=== PATIENT | female | born 1975 | race Caucasian/White ===

== ENCOUNTER 2019-02-27 18:43 | Outpatient (REF) | payer MEDICAID, SELFPAY ==
--- NOTE | 2019-02-27 16:45 | PAPFT_PTH ---
PATIENT: Taya Harvey LOC: [facility] U#:[id number] AGE/SX: 44/F ROOM: RE02/27/[address]: Maggie Son : 1975 BED: DIS: 02/27/2019 SPEC #: [id number] RECD: 02/28/19 12:47 STATUS: SADE REQ #: [id number] TEJAL: 02/27/19 16:[address]: Maggie Son DEPT: [facility] Cytology RECD BY: Kamryn Monae ENTERED: 02/28/19 12:47 SP TYPE: PAPFT OTHR DR: Cj Jimenez Tissues: 1 - CX/ENDOCX FOR PAP SMEARS Procedures: PAP THIN PREP/[facility] Screening HPV DNA PROBE Comments: [id number]
== END 2019-02-27 19:03 ==
LOC: NCHCN 18:43
PROVIDERS: PCP Internal Medicine; Visit Provider Family Medicine
DX: Z00.00 Encounter for general adult medical examination without abnormal findings (principal); Z12.4 Encounter for screening for malignant neoplasm of cervix
CPT/HCPCS: 88142; 87624

== ENCOUNTER 2022-06-10 16:27 | Outpatient (REF) | payer MEDICAID, SELFPAY ==
[2022-06-10 21:29] LABS: HCT 37.3 % (36.0-46.0); HGB 12.4 g/dL (11.2-15.7); MCH 29.5 pg (27.0-33.0); MCHC 33.2 % (32.0-36.0); MCV 89 fL (80-95); MPV 11.2 fL (8.0-11.0); Platelet Count 299 10^3/uL (130-400); RBC 4.21 10^6/uL (3.93-5.22); RDW-SD 42.2 fL; WBC 7.76 10^3/uL (4.4-10.8)
[2022-06-10 21:35] LABS: ESR 2 mm/hr (0-20)
[2022-06-10 21:36] LABS: C-Reactive Protein < 0.05 mg/dL (0.0-0.3)
[2022-06-10 21:39] LABS: Hemoglobin A1C 5.4 % (<5.7)
[2022-06-11 22:31] LABS: Rheumatoid Factor <8.6 IU/mL (<12.0)
[2022-06-13 08:56] LABS: Cyclic Citrullinated Peptide <2.5 U/mL (<5.0)
[2022-06-13 14:28] LABS: ANA Interpretation Negative (Negative)
== END 2022-06-10 16:28 | disposition home or self-care (01) ==
LOC: NCHCN 16:27
PROVIDERS: PCP Internal Medicine; Visit Provider Family Medicine
DX: K50.90 Crohn's disease, unspecified, without complications
CPT/HCPCS: 85027; 85652; 86200; 83036; 86038; 86140; 86431

== ENCOUNTER 2023-05-08 09:06 | Emergency (ER) | payer MEDICAID, SELFPAY ==
--- NOTE | 2023-05-08 08:40 | DI.RAD_ITS ---
Exam(s) XR WRIST LT COMP NAVICULAR XR FOREARM LT XR HAND LT COMPLETE EXAM: XR FOREARM LT and XR wrist LT complete with navicular and XR hand LT complete CLINICAL HISTORY: trauma/pain. TECHNIQUE: 2D digital imaging was performed of the left forearm. Eight views were obtained. Multip le views were obtained. COMPARISON: No priors for comparison. FINDINGS: BONES: No acute fracture is present. No bony destructive lesion is seen. Visualized portion of elbow and wrist joints are unremarkable. SOFT TISSUE: Normal. IMPRESSION: No acute fracture or dislocation is seen in the left forearm, wrist or hand. DATA REPOSITORY: RADIATION DOSE DELIVERED:
[2023-05-08 09:20] VITALS: BP 103/34; PULSE 72; RESP 16; TEMP 36.6; O2SAT 98
--- OUTSIDE RECORDS SUMMARY | 2023-05-08 09:27 | XMS_ITS | CCD ---
Author Name Unknown Address [address] [place] [phone] Organization Unknown Address [address] [place], [place] [id number] Care Team Providers Care Reading Intervention Teacher Name Role Phone SUKHDEEP LUND Attending Physician [phone] SUKHDEEP LUND Rounding (Secondary) Physici an [phone] Vital Signs Unknown or Not Available. Allergies Allergy Code Allergy Type Reaction Status ERYTHROMYCIN 4053 Drug allergy Active Procedures Unknown or Not Available. History of Immunizations Unknown or Not Available. Problems Unknown or Not Available. Results Unknown or Not Available. Active Medications Unknown or Not Available. Medications Administered During Visit Unknown or Not Available. Encounters Encounter Diagnosis Diagnosis Code Start Date Noninflammatory disorder of the vagina [id number] 12/22/2021 Social History Smoking Status Code Start Date End Date Never smoker [id number] Patient Decision Aids Unknown or Not Available. Discharge Instructions You were admitted to [facility] on 12/22/2021 09:54 with a principal diagnosis of Other specified noninflammatory disorders of vagina You were discharged from [facility] on 12/22/2021 09:55 Should you have any questions prior to discharge, please contact a member of your healthcare team. If you have left the hospital and have any questions, please contact your primary care physician. Chief Complaint and Reason For Visit Unknown or Not Available. Function Status Unknown or Not Available. Plan of Care Unknown or Not Available. Referral/Transition of Care Unknown or Not Available.
--- OUTSIDE RECORDS SUMMARY | 2023-05-08 09:27 | XMS_ITS | Patient Health Record ---
Author Name Unknown Organization [facility] Address [address], [address] [place] [address] Care Team Providers Care Team Leader Surgery Name Role Phone HuyMaggie Primary Care Provider Pan Williamson MD, Amanda Unavailable [phone] ALLERGIES Allergen (clinical drug ingredient) Drug/Non Drug Allergy documented on EMR Reaction Allergy Type Onset Date Status Food intolerances (uncoded) Unknown Allergy Active erythromycin Erythromycin Unknown Drug Allergy A ctive RESULTS Component Value Reference Range Notes Surgical Pathology Report Reviewed date:02/16/2023 03:37:01 PM Interpretation: Performing Lab: Notes/Report: TESTING PERFORMED OR REFERRED BY: The [address] [id number] Client ID: [id number] (See below) NOTE TO PATIENT The following pathology results have been interpreted by your pathologist and may be available to you before your health provider has had the opportunity to review them. Please allow time for your provider to receive these results and explore management options, if applicable. AP FINAL DIAGNOSIS A. SKIN OF VULVA, BIOPSY: - Subacute spongiotic dermatitis. See microscopic and comment. FINAL DIAGNOSIS COMMENT The findings are those of a subacute spongiotic dermatitis. Scattered dyskeratotic keratinocytes raise the possibility of an irritant dermatitis. Eosinophils are present raising the consideration of an allergic contact dermatitis. Clinical correlation is recommended. ATTESTATION There was significant resident/fellow involvement in the diagnostic evaluation of this case. By the signature below, the attending physician certifies that they have personally conducted a gross and/or microscopic examination of the described specimens and rendered or confirmed the above diagnosis. at 1010 MICROSCOPIC DESCRIPTION There is orthohyperkeratosis and parakeratosis. The epidermis is hyperplastic with elongate and thickened rete ridges. There is a variable degree of spongiosis with exocytosis of lymphocytes. Scattered dyskeratotic keratinocytes are noted within the epidermis. A rare eosinophils also seen within the epidermis. Within the dermis, there is a moderately dense superficial perivascular infiltrate. The infiltrate is composed of lymphocytes and histiocytes with eosinophils. A PAS stain is performed and shows no evidence of fungal organisms. CLINICAL HISTORY Clinical diagnosis code: N90.89 GROSS DESCRIPTION A. Received in formalin labelled with proper patient identification (initials C, A) and not otherwise specified is a punch biopsy of link-brown skin (0.4 cm in diameter and 0.1 cm in thickness). Submitted intact in A1. Nohemy Jacobo 02/08/2023 9:06 TRAINEE/RESIDENT/FELLOW: Loco Cano DO AP PERFORMING LAB [facility] End of Report Disclaimers: 1) Reports generated via electronic interface contain original data; however they are lacking the format of the original report. Caution should be taken when reading/interpreting unformatted reports. 2) Please reference the paper report if the text (End of Report) is not displayed. REASON FOR REFERRAL No Information MEDICATIONS Medication SIG (Take, Route, Frequency, Duration) Notes Start Date End Date Status Triamcinolone Acetonide 0.1 % 1 application Externally Twice a day for 14 days Active Cod Liver Oil Active Estrace 0.1 MG/GM 1 fingertipful external to vulva Twice weekly for 30 days 02/13/2023 Active Digestive Enzymes Ac tive licorice tea and doug tincture Active Magnesium Active Evening [place] Oil Active supplements and vitamins algae osmany supplement (for bones) Active Iron Active SOCIAL HISTORY Tobacco Use: Social History Observation Description Date Details (start date - stop date) Never Smoker NA - NA Sex Assigned At : Social History Observation Description Sex Assigned At Unknown Smoking Question Answer Notes Are you a: nonsmoker PROBLEMS Problem Type ICD Code Onset Dates Problem Status W/U Status Risk SNOMED Code Notes Problem Crohn's disease, unspecified, without complications (K50.90) Active confirmed Crohn's disease (76338398) Problem Pruritus vulvae (L29.2) Active confirmed Pruritus vulvae (97249623) Problem Subacute and chronic vaginitis (N76.1) Active confirmed Vaginitis and vulvovaginitis (192919842) VITAL SIGNS Blood pressure diastolic 56 02/07/2023 Height 62.75 in 02/07/2023 Blood pressure systolic 96 02/07/2023 Weight 116 lbs 02/07/2023 BMI 20.71 kg/m2 02/07/2023 Encounters Encounter Location Date Provider Diagnosis [facility] [address] [place] [address], [address] [place] [address] 02/07/2023 Amanda Williamson Other specified noninflammatory disorders of vulva and perineum N90.89 [facility] [address] [place] [address], [address] [place] [address] 02/08/2023 Amanda Williamson [facility] [address] [place] [address], [address] [place] [address] 02/15/2023 Amanda Williamson [facility] [address] [place] [address], [address] [place] [address] 02/16/2023 Amanda Williamson [facility] [address] [place] [address], [address] [place] [address] 02/20/2023 Amanda Williamson [facility] [address] [place] [address], [address] 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 Reviewed ddx including atopic derm, LS (though this does not appear likely based on exam) or other dermatitis. Patient consented to bx and decided to start with the most anterior area based on sx. SHe tolerated well and we will call with result and next steps PLAN OF TREATMENT No Information Insurance Providers Payer Name Payer Address Payer Phone Subscriber Number Group Number Insured Name Patient Relationship to Insured Coverage Start Date Coverage End Date [place] [address] [place] [address] [id number] Taya Harvey Self - patient is the insured MEDICAL (GENERAL) HISTORY Medical History History ICD Code () Crohns disease - diagnosed at 19 Vulvar skin problems History of hives - has been ongoing, las ting for months Oral HSV Follows limited anti-histamine diet Anal fissures Last PAP: 10/12/2020 NIL, neg HPV (EPIC) Surgical History Surgery Date(Month/Year)
--- OUTSIDE RECORDS SUMMARY | 2023-05-08 09:27 | XMS_ITS | CCD ---
Author Name Unknown Address [address] [place] [phone] Organization Unknown Address [address] [place], [place] [address] Care Team Providers Care Dynamometer Tester Engine Name Role Phone SHANTE JERRY Attending Physician [phone] SHANTE JERRY Rounding (Secondary) Physic elena [phone] Vital Signs Unknown or Not Available. Allergies Allergy Code Allergy Type Reaction Status ERYTHROMYCIN 4053 Drug allergy Active Procedures Unknown or Not Available. History of Immunizations Unknown or Not Available. Problems Unknown or Not Available. Results Unknown or Not Available. Active Medications Unknown or Not Available. Medications Administered During Visit Unknown or Not Available. Encounters Encounter Diagnosis Diagnosis Code Start Date Gynecologic examination [id number] 02/05/20 Social History Smoking Status Code Start Date End Date Never smoker [id number] Patient Decision Aids Unknown or Not Available. Discharge Instructions You were admitted to [facility] on 02/04/2022 15:10 with a principal diagnosis of Encounter for gynecological examination (general) (routine) without abnormal findings You were discharged from [facility] on 02/04/2022 15:10 Should you have any questions prior to [...]
--- OUTSIDE RECORDS SUMMARY | 2023-05-08 09:27 | XMS_ITS | CCD ---
Author Name Unknown Address [address] [place] [phone] Organization Unknown Address [address] [place], [place] [id number] Care Team Providers Care Financial Economist Name Role Phone TOSHA BELLA, BETTE Jorge Attending Physician [phone] Vital Signs Unknown or Not Available. Allergies Allergy Code Allergy Type Reaction Status ERYTHROMYCIN 4053 Drug allergy Active Procedures Unknown or Not Available. History of Immunizations Unknown or Not Available. Problems Unknown or Not Available. Results PAP THINPREP HPV REGARDLESS OF DX - Collect Date/Time: 09/29/2020 17:49 Test Name Code Test Result Test Units Test Ref Rang e Report (See below) N/A Active Medications Unknown or Not Available. Medications Administered During Visit Unknown or Not Available. Encounters Encounter Diagnosis Diagnosis Code Start Date Encounter for screening for human papillomavirus (HPV) [id number] 09/29/2020 Social History Smoking Status Code Start Date End Date Never smoker [id number] Patient Decision Aids Unknown or Not Available. Discharge Instructions You were admitted to [facility] on 09/29/2020 10:32 with a principal diagnosis of Encounter for screening for human papillomavirus (HPV) You had the following tests done:PAP THINPREP HPV REGARDLESS OF DX You were discharged from [facility] on 09/29/2020 10:32 Should you have any questions prior to [...]
--- NOTE | 2023-05-08 10:06 | ED.GENADUL_ITS ---
HPI General Mode of arrival: ambulatory . Date/Time Provider Initiated Documentation: 05/08/23 09:24 . Limitations to Documentation: no limitations . Information obtained by: patient and RN notes reviewed . History of Present Illness 48 year old F presents to the emergency department with the chief complaint of ski injury- left arm/ wrist/ hand, Related Data Home Medications Medication Instructions Recorded Confirmed Unknown [No Known Home Meds] 05/08/23 05/08/23 Allergies Allergy/AdvReac Type Severity Reaction Status Date / Time erythromycin base Allergy Unknown Other (See Verified 05/08/23 09:20 Comment) General Stated Complaint: Orthopedic ROSALES: 4 Review of Systems Cardiovascular Cardiovascular: Denies syncope Musculoskeletal Musculoskeletal: Reports as per HPI, Reports arthralgias, Reports limited range of motion, Denies numbness, Reports stiffness and Denies tingling Integumentary/Breasts Skin/Breast: Denies erythema, Denies unusual bruising and Denies wounds Neurologic Neurologic: Denies syncope, Denies numbness and Denies tingling Exam Const General: cooperative, no acute distress and not ill appearing Orientation: alert, awake and oriented x3 HENMT Mouth: moist mucous membranes Resp Effort & Inspection: normal respiratory effort, able to speak in complete sentences and no respiratory distress Cardio Rate: regular rate Rhythm: regular rhythm Skin General skin exam: no rashes or lesions noted Neuro General: patient alert, patient awake, patient oriented x3, moves all extremities and no focal motor deficits Sensory Exam: no sensory deficits noted Extrem General: normal exam except as noted Left upper extremity: elbow/forearm Details: tenderness Location: of the mid- shaft forearm, normal ROM and distal pulses intact; no ecchymosis, wrist Details: tenderness Location: of the distal radius, of the distal ulna, of the anatomic snuffbox and of the dorsal wrist, abnormal ROM Details: pain with ac tive ROM and pain with passive ROM, normal vascular exam and radial pulse present; no ecchymosis and no crepitus and hand Details: tenderness Location: of the dorsal hand Location: over the 3rd metacarpal and over the 4th metacarpal and of the 3rd digit Location: at the MCP joint and normal ROM of fingers; no abrasions and no lacerations Course Vital Signs Vital signs: Vital Signs Temperature 36.6 C 05/08/23 09:20 Pulse 72 05/08/23 09:20 Respiratory Rate 16 05/08/23 09:20 Blood Pressure 103/34 L 05/08/23 09:20 Pulse Oximetry 98 05/08/23 09:20 Temperature 36.6 C 05/08/23 09:20 Temperature Source Skin 05/08/23 09:20 Pulse 72 05/08/23 09:20 Respiratory Rate 16 05/08/23 09:20 Blood Pressure 103/34 L 05/08/23 09:20 Blood Pressure Position Sitting 05/08/23 09:20 Pulse Oximetry 98 05/08/23 09:20 Oxygen Delivery Method Room Air 05/08/23 09:20 Oxygen Flow Rate 0 05/08/23 09:20 Pain Level 7 05/08/23 09:20 Medical Decision Making Patient presenting to the emergency department for chief complaint of left forearm wrist and hand injury. She states that she was cross-country skiing yesterday going down a hill and had a fall which she does not know if she had a extreme flexion or extension type injury of her wrist. Afterwards she had significant pain and discomfort in multiple locations. Patient denies any other injury or trauma, denies syncope, no significant contributing past medical history. Physical exam shows multiple areas of tenderness throughout the forearm wrist and hand patient stating most of the pain is at the base of the third digit. Cap refill pulse sensation and movement is intact with no obvious or extreme deformity noted. Will plan on performing radiological imaging given mechanism of injury Reviewed radiological imaging and radiologist interpretation that shows no acute findings. Patient placed in a wrist splint and discussed conservative management. After discussion of diagnosis and plan of care patient has no further needs, questions, or concerns and states clear understanding to return to the emergency department for any worsening symptoms. This documentation was generated using oLyfe dictation system, please disregard any oddities of phrase or misspellings. Imaging Data Radiologic Study: Imaging: X-Ray Radiologist's impression: Exam(s) XR WRIST LT COMP NAVICULAR XR FOREARM LT XR HAND LT COMPLETE EXAM: XR FOREARM LT and XR wrist LT complete with navicular and XR hand LT complete CLINICAL HISTORY: trauma/pain. TECHNIQUE: 2D digital imaging was performed of the left forearm. Eight views were obtained. Multiple views were obtained. COMPARISON: No priors for comparison. FINDINGS: BONES: No acute fracture is present. No bony destructive lesion is seen. Visualized portion of elbow and wrist joints are unremarkable. SOFT TISSUE: Normal. IMPRESSION: No acute fracture or dislocation is seen in the left forearm, wrist or hand. Quality:SDOH Health Related Social Needs: No Data to Display PFSH All Active Problems Left wrist sprain (Acute) Social History Smoking/Tobacco Use Status: Never Smoking risk assessment performed?: Yes Alcohol Intake: never Substance use type: does not use Discharge Plan Disposition Patient Disposition: Home Discharge Details Clinical Impression: Left wrist sprain Primary Care Provider: Cj Jimenez ED Provider: Sukhdev Olson Home Meds and New Rx's Prescriptions: No Action No Known Home Meds Discharge Instructions Instructions: R.I.C.E. Treatment (ED), Wrist Sprain (ED) Additional Instructions: Please use the wrist brace for the next 1 to 2 weeks and then slowly advance activity as tolerated. You may continue to take [id number] pain medication as needed for discomfort Please follow-up with your primary care provider if not improving in the next 2 weeks. Referrals: Cj Jimenez [Primary Care Provider] - 2 weeks (If not improving)
[2023-05-08 10:34] VITALS: BP 103/70
== END 2023-05-08 10:38 | disposition home or self-care (01) ==
PROVIDERS: Emergency Provider Nurse Practitioner Family; PCP Internal Medicine
DX: S63.502A Unspecified sprain of left wrist, initial encounter (principal); W00.0XXA Fall on same level due to ice and snow, initial encounter; Y93.24 Activity, cross country skiing; Y92.838 Other recreation area as the place of occurrence of the external cause
CPT/HCPCS: 99283; 73090; 73110; 73130

== ENCOUNTER 2024-06-06 14:56 | Outpatient (CLI) | payer MEDICAID, SELFPAY ==
--- NOTE | 2024-06-06 14:44 | DI.RAD_ITS ---
Exam(s) XR FOOT RT COMPLETE EXAM: XR FOOT RT COMPLETE CLINICAL HISTORY: Rt foot pain, M79.671. TECHNIQUE: 2D digital imaging was performed. Three views. COMPARISON: No exams were available for comparison FINDINGS: BONES: No acute fracture is present. No bony destructive lesion is seen. Tiny enthesophyte at the ca lcaneus. JOINTS: No dislocation present. No significant degenerative changes. SOFT TISSUE: Normal. IMPRESSION: Unremarkable radiographs of the right foot. DATA REPOSITORY: RADIATION DOSE DELIVERED:
== END 2024-06-06 15:16 ==
LOC: DI 14:56
PROVIDERS: PCP Family Medicine; Visit Provider Physician Assistant Medical
DX: M79.671 Pain in right foot (principal)
CPT/HCPCS: 73630